=== PATIENT | male | born 1965 | race African-American/Black ===

== ENCOUNTER 2018-03-04 16:06 | Emergency (ER) | payer SELFPAY ==
[~2018-03-04] VITALS: Ht 175.3 cm; Wt 118.0 kg
[2018-03-04 16:18] VITALS: BP 167/82
== END 2018-03-04 17:05 | disposition left against medical advice (07) ==
LOC: EDBD 16:18 → ER 16:18
DX: R41.82 Altered mental status, unspecified (principal); F17.200 Nicotine dependence, unspecified, uncomplicated; Z53.21 Procedure and treatment not carried out due to patient leaving prior to being seen by health care provider